=== PATIENT | male | born 1985 | race Caucasian/White ===

== ENCOUNTER 2018-03-23 07:04 | Emergency (ER) | payer BC ==
[2018-03-23] MEDS ORDERED: bacitracin 15gm ointment TP ONE (07:15)
[2018-03-23 07:44] VITALS: BP 153/99
== END 2018-03-23 07:45 | disposition home or self-care (01) ==
LOC: ER 07:04
DX: S01.81XA Laceration without foreign body of other part of head, initial encounter (principal); W22.01XA Walked into wall, initial encounter; Y93.01 Activity, walking, marching and hiking; Y92.89 Other specified places as the place of occurrence of the external cause; Y99.9 Unspecified external cause status
CPT/HCPCS: 99282